=== PATIENT | female | born 1985 | race Caucasian/White ===

== ENCOUNTER 2017-03-17 10:46 | Observation (INO) | payer OTHER ==
[~2017-03-17] VITALS: Ht 157.5 cm; Wt 96.6 kg
[~2017-03-17 10:46] MED LIST: NOCURR
[2017-03-17 12:01] VITALS: BP 117/63
== END 2017-03-17 11:50 | disposition home or self-care (01) ==
LOC: 4S 10:46
PROVIDERS: ADMIT Obstetrics & Gynecology; ATTEND Obstetrics & Gynecology
DX: O10.913 Unspecified pre-existing hypertension complicating pregnancy, third trimester (principal); O99.283 Endocrine, nutritional and metabolic diseases complicating pregnancy, third trimester; E03.9 Hypothyroidism, unspecified; Z3A.37 37 weeks gestation of pregnancy
CPT/HCPCS: 59025; G0378

== ENCOUNTER 2017-03-24 07:45 | Observation (INO) | payer OTHER ==
[~2017-03-24] VITALS: Ht 157.5 cm; Wt 97.1 kg
[2017-03-24 08:06] VITALS: BP 125/78
[2017-03-24] MEDS ORDERED: PREN1TAB80 PO (08:09)
[2017-03-24] MEDS ORDERED: LEVO25TA9 PO (08:09)
[2017-03-24] MEDS ORDERED: METHY500 PO (08:09)
== END 2017-03-24 08:30 | disposition home or self-care (01) ==
LOC: 4S 07:45
PROVIDERS: ADMIT Obstetrics & Gynecology; ATTEND Obstetrics & Gynecology
DX: O10.913 Unspecified pre-existing hypertension complicating pregnancy, third trimester (principal); O99.283 Endocrine, nutritional and metabolic diseases complicating pregnancy, third trimester; E03.9 Hypothyroidism, unspecified; Z3A.39 39 weeks gestation of pregnancy
CPT/HCPCS: 59025; G0378

== ENCOUNTER 2022-11-29 09:32 | Emergency (ER) | payer OTHER ==
[~2022-11-29] VITALS: Ht 160 cm; Wt 61.4 kg
[~2022-11-29 09:32] MED LIST changes: +LEVO25TA9 PO; +METHY500 PO; +PREN1TAB80 PO
[2022-11-29 09:39] VITALS: BP 146/94
[2022-11-29] MEDS ORDERED: LOSA100T58 PO (09:47)
[2022-11-29] MEDS ORDERED: LEVO50TA11 PO (09:47)
[2022-11-29] MEDS ORDERED: AMLO5TAB66 PO (09:47)
== END 2022-11-29 12:30 | disposition left against medical advice (07) ==
LOC: EMS 09:37
DX: S76.311A Strain of muscle, fascia and tendon of the posterior muscle group at thigh level, right thigh, initial encounter (principal); I10 Essential (primary) hypertension; E03.9 Hypothyroidism, unspecified; Z98.890 Other specified postprocedural states; W19.XXXA Unspecified fall, initial encounter; Y93.41 Activity, dancing; Y92.89 Other specified places as the place of occurrence of the external cause; Y99.8 Other external cause status
CPT/HCPCS: 73503; 99283

== ENCOUNTER 2024-01-13 08:59 | Emergency (ER) | payer OTHER ==
[~2024-01-13] VITALS: Ht 157.5 cm; Wt 75.9 kg
[~2024-01-13 08:59] MED LIST changes: +AMLO5TAB66 PO; -LEVO25TA9 PO; +LEVO50TA11 PO; +LOSA100T59 PO; -METHY500 PO; -NOCURR; -PREN1TAB80 PO
[2024-01-13 09:20] VITALS: TEMP 98
[2024-01-13 09:59] LABS: BASOPHILS % (AUTO) 0.4 % (0.0-2.0); HEMATOCRIT 38.7 % (36-46); HEMOGLOBIN 13.2 g/dL (12.0-16.0); LYMPHOCYTES # (AUTO) 1.9 K/uL (1.0-4.8); LYMPHOCYTES % (AUTO) 28.1 % (22.0-44.0); MEAN CORPUSCULAR HEMOGLOBIN 30.5 pg (26.0-34.0); MEAN CORPUSCULAR VOLUME 90 fL (80-100); MONOCYTES # (AUTO) 0.4 K/uL (0.1-1.0); MONOCYTES % (AUTO) 5.6 % (2.0-9.0); NEUTROPHILS # (AUTO) 4.4 K/uL (1.8-7.7); NEUTROPHILS % (AUTO) 63.9 % (40.0-70.0); PLATELET COUNT (AUTO) 239 K/uL (150-450); RED BLOOD CELL COUNT(AUTO) 4.32 MIL/uL (4.00-5.20); RED CELL DISTRIBUTION WIDTH 13.6 % (11.5-14.5); WHITE BLOOD COUNT (AUTO) 6.9 K/uL (4.5-11.0)
[2024-01-13 13:29] LABS: APPEARANCE,URINE CLEAR (CLEAR); BILIRUBIN,URINE NEGATIVE (NEGATIVE); COLOR,URINE COLORLESS (YELLOW); GLUCOSE, URINE (UA) NEGATIVE (NEGATIVE); KETONES,URINE NEGATIVE (NEGATIVE); LEUKOCYTE ESTERASE ,URINE NEGATIVE (NEGATIVE); NITRATE,URINE NEGATIVE (NEGATIVE); OCCULT BLOOD,URINE NEGATIVE (NEGATIVE); PH,URINE 7.5 (5.0-8.0); PROTEIN,URINE NEGATIVE (NEGATIVE); SPECIFIC GRAVITIY, URINE 1.008 (1.003-1.030); UROBILINOGEN,URINE <=1.0 mg/dL (<=1.0)
[2024-01-13 13:49] LABS: BACTERIA,URINE None Seen /HPF (None Seen); RBC,URINE None Seen /HPF (0-2); SQUAMOUS EPITHELIAL CELL,UR Few /LPF (None Seen); WBC,URINE None Seen /HPF (0-5)
[2024-01-13 14:48] VITALS: BP 120/68; PULSE 72; RESP 18
== END 2024-01-13 14:49 | disposition home or self-care (01) ==
LOC: EMS 08:59
DX: O26.891 Other specified pregnancy related conditions, first trimester (principal); I10 Essential (primary) hypertension; E03.9 Hypothyroidism, unspecified; Z98.890 Other specified postprocedural states; Z3A.01 Less than 8 weeks gestation of pregnancy
CPT/HCPCS: 76801; 81001; 84702; 85025; 86901; 99284